=== PATIENT | male | born 1960 | race Caucasian/White ===

== ENCOUNTER → 2019-03-02 | Outpatient (CLI) | payer BC | END | disposition home or self-care (01) | LOC: US 02-24 10:00 | DX: K76.0 Fatty (change of) liver, not elsewhere classified (principal) ==

== ENCOUNTER → 2019-03-18 | Outpatient (CLI) | payer BC | END | disposition home or self-care (01) | LOC: MRI 07:22 | DX: K76.9 Liver disease, unspecified (principal) ==

== ENCOUNTER 2019-06-07 06:43 | Emergency (ER) | payer BC ==
[~2019-06-07] VITALS: Ht 167.6 cm; Wt 94.8 kg
[2019-06-07] MEDS ORDERED: MEDROL DOSEPAK4 MG PO (07:05)
== END 2019-06-07 07:36 | disposition home or self-care (01) ==
LOC: ED 06:43
DX: M25.471 Effusion, right ankle (principal); M25.571 Pain in right ankle and joints of right foot; I10 Essential (primary) hypertension; E66.9 Obesity, unspecified

== ENCOUNTER → 2023-07-03 | Outpatient (CLI) | payer OTHER ==
[~2023-07-03] MED LIST: MEDROL DOSEPAK4 MG PO
== END | disposition home or self-care (01) ==
LOC: RAD 09:48
PROVIDERS: ATTEND Nurse Practitioner Family
DX: M19.011 Primary osteoarthritis, right shoulder (principal)